=== PATIENT | female | born 1985 | race Caucasian/White ===

== ENCOUNTER 2019-03-18 22:38 | Emergency (ER) | payer MEDICAID, OTHER ==
[~2019-03-18] VITALS: Ht 170.2 cm; Wt 65.0 kg
[2019-03-18 23:51] VITALS: BP 100/66
[2019-03-18] MEDS ORDERED: NO HOME MEDS (23:54)
[2019-03-19 01:04] LABS: BASOPHILS % (AUTO) 0.5 % (0-1); EOSINOPHILS # (AUTO) 0.3 X10'3 (0-0.9); EOSINOPHILS % (AUTO) 4.6 % (0-6); HEMATOCRIT 38.6 % (35.0-45.0); HEMOGLOBIN 13.4 g/dl (12.0-16.0); LYMPHOCYTES # (AUTO) 2.6 X10'3 (1.1-4.8); LYMPHOCYTES % (AUTO) 41.2 % (21-51); MEAN CORPUSCULAR HEMOGLOBIN 29.1 PG (27.0-31.0); MEAN CORPUSCULAR HGB CONC 34.6 g/dL (33.0-36.5); MEAN CORPUSCULAR VOLUME 84.3 FL (78-98); MEAN PLATELET VOLUME 8.6 FL (7.4-10.4); MONOCYTES # (AUTO) 0.6 X10'3 (0-0.9); MONOCYTES % (AUTO) 8.9 % (2-12); NEUTROPHILS # (AUTO) 2.8 X10'3 (1.8-7.7); NEUTROPHILS % (AUTO) 44.8 % (42-75); PLATELET COUNT 215 X10'3 (140-440); RED BLOOD COUNT 4.58 X10'6 (4.20-5.60); RED CELL DISTRIBUTION WIDTH 14.1 % (11.5-14.5); WHITE BLOOD COUNT 6.4 X10'3 (4.5-11.0)
[2019-03-19 01:13] LABS: ALANINE AMINOTRANSFERASE 17 U/L (12-78); ALBUMIN 3.6 G/DL (3.4-5.0); ALKALINE PHOSPHATASE 65 IU/L (46-116); ANION GAP 8 (8-16); ASPARTATE AMINO TRANSFERASE 21 U/L (10-37); BILIRUBIN,TOTAL 0.2 MG/DL (0.1-1.0); BLOOD UREA NITROGEN 13 MG/DL (7-18); BUN/CREATININE RATIO 19.1 (6.6-38.0); CALCIUM 8.6 MG/DL (8.5-10.1); CHLORIDE 104 MMOL/L (99-107); CREATININE 0.68 MG/DL (0.40-0.90); GLUCOSE 100 MG/DL (70-104); POTASSIUM 3.8 MMOL/L (3.5-5.1); SODIUM 139 MMOL/L (135-145); TOTAL CARBON DIOXIDE 27.1 MMOL/L (24-32); TOTAL PROTEIN 7.3 G/DL (6.4-8.2); eGFR > 90 ML/MIN
[2019-03-19 01:52] LABS: PARTIAL THROMBOPLASTIN TIME 29 SECONDS (22-32)
== END 2019-03-19 01:36 | disposition home or self-care (01) ==
LOC: ER 22:38
DX: N93.9 Abnormal uterine and vaginal bleeding, unspecified (principal); R10.30 Lower abdominal pain, unspecified; F10.99 Alcohol use, unspecified with unspecified alcohol-induced disorder; R94.6 Abnormal results of thyroid function studies; Z88.5 Allergy status to narcotic agent; Y90.9 Presence of alcohol in blood, level not specified
CPT/HCPCS: 36415; 80053; 84443; 85025; 85610; 85730; 99283

== ENCOUNTER 2020-03-13 22:48 | Emergency (ER) | payer OTHER ==
[~2020-03-13] VITALS: Ht 167.6 cm; Wt 63.6 kg
[~2020-03-13 22:48] MED LIST: NO HOME MEDS
[2020-03-13 22:51] VITALS: BP 128/84
[2020-03-13] MEDS ORDERED: PENI250T2 PO (23:20)
[2020-03-13] MEDS ORDERED: HYDROcodone/acetaminophen 5mg/325mg tablet PO ONE (23:20)
[2020-03-13] MEDS ORDERED: NAPR-56 PO (23:20)
== END 2020-03-13 23:27 | disposition home or self-care (01) ==
LOC: ER 22:48
DX: K04.7 Periapical abscess without sinus (principal); Z88.8 Allergy status to other drugs, medicaments and biological substances; Z79.2 Long term (current) use of antibiotics; Z79.899 Other long term (current) drug therapy
CPT/HCPCS: 99283

== ENCOUNTER 2020-04-06 03:11 | Emergency (ER) | payer SELFPAY ==
[~2020-04-06] VITALS: Ht 167.6 cm; Wt 56.5 kg
[~2020-04-06 03:11] MED LIST changes: +NAPR-56 PO
[2020-04-06 03:14] VITALS: BP 117/74
[2020-04-06] MEDS ORDERED: PENI500T2 PO (03:32)
[2020-04-06] MEDS ORDERED: penicillin V potassium 500mg tablet PO ONE (03:35)
[2020-04-06] MEDS ORDERED: HYDROcodone/acetaminophen 10/325mg tab PO ONE (03:35)
== END 2020-04-06 03:47 | disposition home or self-care (01) ==
LOC: ER 03:12
DX: K08.89 Other specified disorders of teeth and supporting structures (principal); K05.10 Chronic gingivitis, plaque induced; K13.79 Other lesions of oral mucosa; Z72.89 Other problems related to lifestyle; Z79.2 Long term (current) use of antibiotics; Z79.899 Other long term (current) drug therapy
CPT/HCPCS: 99283